=== PATIENT | female | born 1970 | race Native Hawaiian/Other Pacific Islander ===

== ENCOUNTER 2017-03-21 14:31 | Outpatient (CLI) | payer OTHER ==
--- NOTE | 2017-03-21 15:53 | Mammography Report ---
BILATERAL DIGITAL SCREENING MAMMOGRAM WITH CAD:03/21/17 CLINICAL: Baseline screening. FINDINGS: The breasts are heterogeneously dense, which may obscure small masses. Left asymmetries on the CC view require additional imaging. No architectural distortion or suspicious calcifications. The right breast is negative. IMPRESSION: Left asymmetries requiring further workup. BI-RADS CATEGORY: 0 -- Needs Additional Imaging RECOMMENDATION: Recall for left ML and spot compression CC and MLO views and left breast ultrasound if needed. ACR BI-RADS MAMMOGRAPHIC CODES: 0 = Needs additional imaging evaluation; 1 = Negative; 2 = Benign; 3 = Probably benign; 4 = Suspicious; 5 = Malignant; 6 = Known biopsy-proven malignancy COMMENT: 1. Dense breast tissue, i.e., adenosis, fibrocystic changes, etc., may obscure an underlying neoplasm. 2. Approximately 10% of cancers are not detected with mammography. 3. A negative mammography report should not delay biopsy if a clinically suspicious mass is present.
== END 2017-03-21 14:32 | disposition home or self-care (01) ==
LOC: SPVWC 14:31
PROVIDERS: ATTEND Internal Medicine
DX: Z12.31 Encounter for screening mammogram for malignant neoplasm of breast (principal)
CPT/HCPCS: 77067; G0202

== ENCOUNTER 2017-04-16 10:57 | Outpatient (CLI) | payer OTHER ==
--- NOTE | 2017-04-16 12:01 | Ultrasound Report ---
LEFT DIGITAL DIAGNOSTIC MAMMOGRAM and LEFT BREAST ULTRASOUND: 04/16/17 10:57:00 CLINICAL: Recalled for asymmetries. COMPARISON:03/21/17 screening FINDINGS: Lateralmedial and spot compression MLO and CC views were performed and demonstrate persistent asymmetries. Ultrasound of the upper outer left breast was performed and demonstrated a benign cyst at 3 o'clock 5.5 cm from the nipple measuring 7 x 5 x 6 mm and a benign intraparenchymal lymph node at 3 o'clock 4 cm from the nipple measuring 6 x 3 about 5 mm. The cyst and a lymph node correlate with the mammographic densities. IMPRESSION: A benign cyst at 3 o'clock. No suspicious finding. BI-RADS CATEGORY: 1 - - Negative RECOMMENDATION: Routine mammographic screening in one year. ACR BI-RADS MAMMOGRAPHIC CODES: 0 = Needs additional imaging evaluation; 1 = Negative; 2 = Benign; 3 = Probably benign; 4 = Suspicious; 5 = Malignant; 6 = Known biopsy-proven malignancy COMMENT: 1. Dense breast tissue, i.e., adenosis, fibrocystic changes, etc., may obscure an underlying neoplasm. 2. Approximately 10% of cancers are not detected with mammography. 3. A negative mammography report should not delay biopsy if a clinically suspicious mass is present. COMMENT: Patient follow-up letters are generated via our [email or web address] application.
== END 2017-04-16 10:58 | disposition home or self-care (01) ==
LOC: SPVWC 10:57
PROVIDERS: ATTEND Internal Medicine
DX: N60.02 Solitary cyst of left breast (principal)
CPT/HCPCS: 76642; G0206

== ENCOUNTER 2017-10-29 11:34 | Day surgery (SDC) | payer OTHER ==
[~2017-10-29 11:34] MED LIST: NACL 0.9% IR ONE
[2017-10-29] MEDS ORDERED: DIPRIVAN 10 MG/ML IV ONE (12:38)
[2017-10-29] MEDS ORDERED: SUBLIMAZE ONE (12:38)
[2017-10-29] MEDS ORDERED: XYLOCAINE MPF 2% ONE (12:42)
[2017-10-29] MEDS ORDERED: NACL BACTERIOSTATIC INFILTRATI ONE (13:04)
[2017-10-29] MEDS ORDERED: DILAUDID IV PRN ×2 (13:10→13:15)
--- NOTE | 2017-10-29 13:14 | Anesthesia Consultation ---
Anesthesia Consult and Med Hx Date of service: 10/29/17 - Airway Anesthetic Teeth Evaluation: Good ROM Head & Neck: Adequate Mental/Hyoid Distance: Adequate Mallampati Class: Class II - Pulmonary Exam CTA: Yes - Cardiac Exam Cardiac Exam: RRR - Pre-Operative Health Status ASA Pre-Surgery Classification: ASA2 Proposed Anesthetic Plan: General - Pulmonary Hx Smoking: No Hx Asthma: No Hx Respiratory Symptoms: No SOB: No COPD: No Home Oxygen Therapy: No Hx Sleep Apnea: No - Central Nervous System Hx Psychiatric Problems: No - Gastrointestinal Hx Ulcer: No Hx Gastroesophageal Reflux Disease: No - Endocrine Hx Renal Disease: No Hx Cirrhosis: No Hx Liver Disease: No Hx Insulin Dependent Diabetes: No Hx Non-Insulin Dependent Diabetes: No Hx Thyroid Disease: No Hx Hypothyroidism: No Hx Hyperthyroidism: No - Hematic Hx Anemia: No Hx Sickle Cell Disease: No - Other Systems Hx Alcohol Use: Yes (occas) Hx Cancer: No
--- NOTE | 2017-10-29 13:15 | Anesthesia Day of Surgery ---
Anesthesia Day of Surgery - Day of Surgery Patient H&P Reviewed: Yes Patient is NPO: Yes Beta Blockers: Yes Cardiac Clearance: Yes Pulmonary Clearance: Yes
[2017-10-29 13:37] LABS: Basophils # (Auto) 0.1 K/mm3 (0.0-0.1); Eosinophils # (Auto) 0.2 K/mm3 (0.0-0.4); Eosinophils % (Auto) 2.8 % (0.0-4.3); Hematocrit 29.8 % (30.3-42.9); Hemoglobin 9.6 gm/dl (10.1-14.3); Lymphocytes # (Auto) 1.7 K/mm3 (1.2-5.4); Lymphocytes % (Auto) 29.5 % (13.4-35.0); Mean Corpuscular HGB Conc 32 % (30-34); Mean Corpuscular Hemoglobin 27 pg (28-32); Mean Corpuscular Volume 85 fl (79-97); Monocytes # (Auto) 0.4 K/mm3 (0.0-0.8); Monocytes % (Auto) 7.6 % (0.0-7.3); Platelet Count 301 K/mm3 (140-440); Red Cell Distribution Width 12.8 % (13.2-15.2)
[2017-10-29] MEDS ORDERED: NACL 0.9% 1000 ML 1,000 ML IV SCH (14:00)
[2017-10-29] MEDS ORDERED: ZOFRAN ONE (14:14)
[2017-10-29] MEDS ORDERED: TORADOL ONE (14:30)
--- NOTE | 2017-10-29 14:50 | Post Anesthesia Evaluation ---
- Post Anesthesia Evaluation Patient Participated: Yes Airway Patent: Yes Stable Respiratory Function: Yes Nausea/Vomiting: No Temp > 96.8F: Yes Pain Manageable: Yes Adequeate Hydration: Yes Anesthesia Complications: No Block Receding Appropriately: Not Applicable
--- NOTE | 2017-10-29 14:55 | Operative Report ---
Operative Report Operative Report: Preoperative diagnosis: 1. Abnormal uterine bleeding. 2. Thickened endometrial lining. Postoperative diagnosis: Same as preoperative diagnosis Procedure: 1. Hysteroscopy 2. Dilated dilation and curettage Anesthesia: IV sedation with MAC Surgeon: Dr. Menjivar Driver Trainee: none IVF: 1 L RL Procedure details: The risks, benefits, and alternatives of the procedure were discussed in detail with the patient which included but not limited to the risk of infection, hemorrhage requiring blood transfusion, and uterine perforation. The patient expressed understanding, her questions were answered, and she gave informed consent. The patient was taken to the operating room with an IV fluid using Ringer's lactate. In the operating room, she was placed in a in a dorsal supine position. IV sedation was given. She was then placed in the dorsal lithotomy position. The perineum, vagina ,and cervix were washed and she was prepared and draped in the usual sterile fashion. Examination under anesthesia revealedTnormal external genitalia and vagina. The cervix was closed, long, and posterior with no gross lesions or bleeding. The uterus was 9 weeks size, anteverted, and mobile. The adnexa were nonpalpable. A weighted speculum was placed on the posterior vaginal wall. The anterior lip of the cervix was grasped with a single-tooth tenaculum. Endocervical curettage was done. The cervical os was dilated and the hysteroscope was introduced into the uterine cavity. It revealed thickened endometrial lining. The ostia were visualized. Then, a gentle curettage was performed until a gritty texture was noticed. The instruments were removed from the uterine cavity, cervix, and vagina. The counts of laps, needles, sponges, and instruments were correct 2. The patient tolerated the procedure well. She was awakened from the anesthesia and taken to the recovery room in stable condition.
[2017-10-29 15:30] VITALS: BP 129/88
== END 2017-10-29 15:50 | disposition home or self-care (01) ==
LOC: OR 11:34
PROVIDERS: ATTEND Obstetrics & Gynecology
DX: N85.00 Endometrial hyperplasia, unspecified (principal); Z98.890 Other specified postprocedural states; Z88.0 Allergy status to penicillin
CPT/HCPCS: 36415; 58558; 81025; 85025; 88305; A4217; J1885; J2405; J2704; J3010; J7030

== ENCOUNTER 2018-03-27 09:22 | Outpatient (CLI) | payer OTHER ==
--- NOTE | 2018-03-27 13:42 | Mammography Report ---
BILATERAL DIGITAL SCREENING MAMMOGRAM with CAD : 03/27/18 09:22:00 CLINICAL: Routine screening. COMPARISON:03/21/17 FINDINGS: The breasts are heterogeneously dense, which may obscure small masses. No mass, architectural distortion or suspicious calcifications. IMPRESSION: No mammographic evidence of malignancy. BI-RADS CATEGORY: 2 -- Benign RECOMMENDATION: Routine mammographic screening in one year. COMMENT: Patient follow-up letters are generated by our [email or web address] application.
== END 2018-03-27 09:23 | disposition home or self-care (01) ==
LOC: SPVWC 09:22
PROVIDERS: ATTEND Internal Medicine
DX: Z12.31 Encounter for screening mammogram for malignant neoplasm of breast (principal); Z90.89 Acquired absence of other organs
CPT/HCPCS: 77067